=== PATIENT | male | born 1960 | race American Indian/Alaskan Native ===

== ENCOUNTER 2018-09-19 17:26 | Inpatient (IN) | payer MEDICAID, MEDICARE ==
[~2018-09-19 17:26] MED LIST: SOLU-Medrol IV SCH
[2018-09-19] MEDS ORDERED: TYLENOL PO ONE (18:46)
[2018-09-19 19:50] LABS: Basophils # (Auto) 0.1 K/mm3 (0.0-0.1); Basophils % (Auto) 0.9 % (0.0-1.8); Hematocrit 28.9 % (35.5-45.6); Hemoglobin 9.7 gm/dl (11.8-15.2); Lymphocytes # (Auto) 3.1 K/mm3 (1.2-5.4); Lymphocytes % (Auto) 29.9 % (13.4-35.0); Mean Corpuscular HGB Conc 34 % (32-34); Mean Corpuscular Volume 88 fl (84-94); Monocytes # (Auto) 1.6 K/mm3 (0.0-0.8); Platelet Count 108 K/mm3 (140-440); Red Cell Distribution Width 14.9 % (13.2-15.2)
[2018-09-19 20:13] LABS: BUN/Creatinine Ratio 27; Blood Urea Nitrogen 19 mg/dL (9-20); Calcium 8.6 mg/dL (8.4-10.2); Hemolysis Index 6
--- NOTE | 2018-09-19 20:25 | XRay Report ---
FINAL REPORT PROCEDURE: XR CHEST 1V AP TECHNIQUE: Chest radiograph anteroposterior view. CPT 30243 HISTORY: SOB COMPARISON: No prior studies are available for comparison. FINDINGS: Heart: Normal. Mediastinum/Vessels: Normal. Lungs/Pleural space: Lungs are hyperexpanded. Mild fibrotic densities. No focal infiltrate. Bony thorax: No acute osseous abnormality. Life support devices: None. IMPRESSION: Hyperexpansion suggesting COPD. No focal infiltrate..
[2018-09-19] MEDS ORDERED: LEVAQUIN 500MG/100ML 500 MG/100 ML BAG IV ONE (20:45)
[2018-09-19] MEDS ORDERED: NACL 0.9% 1000 ML 1,000 ML IV ONE (20:45)
[2018-09-19] MEDS ORDERED: SOLU-Medrol IV ONE (20:45)
[2018-09-19] MEDS ORDERED: PROVENTIL IH ONE (20:45)
[2018-09-19] MEDS ORDERED: NACL 0.9% 500 ML 500 ML IV ONE (20:45)
--- NOTE | 2018-09-19 20:47 | Emergency Department Report ---
ED General Adult HPI - General Chief complaint: Dyspnea/Respdistress Stated complaint: SHORTNESS OF BREATH Time Seen by Provider: 09/19/18 19:50 Source: patient, family, RN notes reviewed Limitations: Physical Limitation, Other (patient is a poor historian) - History of Present Illness Initial comments: This is a pleasant 58-year-old gentleman, history of COPD, on chronic home oxygen, and known to this provider previously, also reportedly has a history of HIV, reports primary care doctor at [facility]. Patient and family do not know what his CD4 count or viral load is. Patient is brought to the hospital by his sister for evaluation of weakness, cough, fever, history of chest pain, malaise, fatigue, decreased ability to complete activities of daily living. Apparently, the symptoms are constant, worse with physical exertion, decreased with rest, and patient and family are curious about hospice care. Patient reports getting his flu vaccination, and apparently is noncompliant with his antiviral therapy. goals of care not currently established at this point in time. In terms of advanced directives, patient is currently a full code -: Gradual Severity scale (0 -10): 0 Consistency: constant Improves with: other Worsens with: other Associated Symptoms: cough, fever/chills, loss of appetite, malaise, shortness o f breath, weakness. denies: confusion, chest pain, diaphoresis, headaches, nausea/vomiting, rash, seizure, syncope - Related Data Home Medications Medication Instructions Recorded Confirmed Last Taken Acetaminophen [Tylenol] 650 mg PO Q6HR PRN 09/19/18 09/19/18 Unknown Albuterol Sulfate [Ventolin HFA] 2 puff IH Q6H PRN 09/19/18 09/19/18 Unknown Budesonide/Formoterol Fumarate 2 puff IH BID 09/19/18 09/19/18 Unknown [Symbicort 160-4.5 Mcg Inhaler] Fluticasone [Flonase] 1 spray NS QDAY 09/19/18 09/19/18 Unknown Melatonin [Melatin] 3 mg PO HS PRN 09/19/18 09/19/18 Unknown Multivitamin Tab [Multiple Vitamin 1 each PO QDAY 09/19/18 09/19/18 Unknown TAB (Theragran)] Sodium Chloride [Saline Nasal 1 spray NS BID 09/19/18 09/19/18 Unknown [place]] amLODIPine [Norvasc] 5 mg PO DAILY 09/19/18 09/19/18 Unknown Allergies Allergy/AdvReac Type Severity Reaction Status Date / Time No Known Allergies Allergy Unverified 09/19/18 18:36 ED Review of Systems ROS: Stated complaint: SHORTNESS OF BREATH Other details as noted in HPI Constitutional: fever, malaise, weakness Eyes: denies: vision change Respiratory: cough, shortness of breath, wheezing Cardiovascular: chest pain (Sr. reports history of chest pain, patient denies) Gastrointestinal: diarrhea Genitourinary: denies: dysuria Musculoskeletal: arthralgia, myalgia Skin: denies: lesions Neurological: weakness Psychiatric: anxiety ED Past Medical Hx - Past Medical History Previous Medical History?: Yes Hx COPD: Yes Hx HIV: Yes Additional medical history: pneumonia - Surgical History Past Surgical History?: No - Social History Smoking Status: Former Smoker Substance Use Type: None - Medications Home Medications: Home Medications Medication Instructions Recorded Confirmed Last Taken Type Acetaminophen [Tylenol] 650 mg PO Q6HR PRN 09/19/18 09/19/18 Unknown History Albuterol Sulfate [Ventolin HFA] 2 puff IH Q6H PRN 09/19/18 09/19/18 Unknown History Budesonide/Formoterol Fumarate 2 puff IH BID 09/19/18 09/19/18 Unknown History [Symbicort 160-4.5 Mcg Inhaler] Fluticasone [Flonase] 1 spray NS QDAY 09/19/18 09/19/18 Unknown History Melatonin [Melatin] 3 mg PO HS PRN 09/19/18 09/19/18 Unknown History Multivitamin Tab [Multiple Vitamin 1 each PO QDAY 09/19/18 09/19/18 Unknown History TAB (Theragran)] Sodium Chloride [Saline Nasal 1 spray NS BID 09/19/18 09/19/18 Unknown History [place]] amLODIPine [Norvasc] 5 mg PO DAILY 09/19/18 09/19/18 Unknown History ED Physical Exam - General Limitations: No Limitations General appearance: alert, cachectic - Head Head exam: Present: atraumatic, normocephalic - Eye Eye exam: Present: normal appearance, EOMI. Absent: nystagmus - ENT ENT exam: Present: normal exam, mucous membranes dry, normal external ear exam - Neck Neck exam: Present: normal inspection, full ROM. Absent: tenderness, meningismus - Respiratory Respiratory exam: Present: respiratory distress, decreased breath sounds - Cardiovascular Cardiovascular Exam: Present: normal rhythm, tachycardia, normal heart sounds. Absent: systolic murmur, diastolic murmur, rubs, gallop - GI/Abdominal GI/Abdominal exam: Present: soft. Absent: distended, tenderness, guarding, rebound, rigid, pulsatile mass - Rectal Rectal exam: Present: deferred - Extremities Exam Extremities exam: Present: normal inspection, full ROM, other (2+ pulses noted in the bilateral upper, lower extremities. Compartments soft. No long bony tenderness. The pelvis is stable.). Absent: pedal edema, joint swelling, calf tenderness - Back Exam Back exam: Present: normal inspection, full ROM. Absent: tenderness, CVA tenderness (R), paraspinal tenderness, vertebral tenderness - Neurological Exam Neurological exam: Present: alert, oriented X3, other (Extraocular movements intact. Tongue midline. No facial droop. Facial sensation intact to light touch in the V1, V2, V3 distribution bilaterally. 5 and 5 strength in 4 extremities.. Sensation is intact to light touch in 4 extremities.). Absent: motor sensory deficit - Psychiatric Psychiatric exam: Present: anxious - Skin Skin exam: Present: warm, dry, intact, normal color. Absent: rash ED Course Vital Signs 09/19/18 09/19/18 09/19/18 18:26 18:30 18:33 Temperature 102.8 F H Pulse Rate 104 H 101 H 104 H Respiratory 30 H 30 H Rate Blood Pressure 139/76 O2 Sat by Pulse 99 99 Oximetry 09/19/18 09/19/18 09/19/18 18:46 19:00 19:16 Temperature Pulse Rate 102 H 104 H 101 H Respiratory 39 H 31 H 38 H Rate Blood Pressure 139/76 141/87 137/73 O2 Sat by Pulse 100 98 98 Oximetry 09/19/18 09/19/18 09/19/18 19:30 19:46 20:00 Temperature Pulse Rate 98 H 98 H 88 Respiratory 36 H 40 H 26 H Rate Blood Pressure 126/64 121/67 121/67 O2 Sat by Pulse 97 98 100 Oximetry 09/19/18 09/19/18 20:01 20:16 Temperature Pulse Rate 84 Respiratory 26 H 22 Rate Blood Pressure 121/67 O2 Sat by Pulse 96 99 Oximetry - Reevaluation(s) Reevaluation #1: 09/19/18 20:58 Differential diagnosis, including but not limited to: Viremia, bacteremia, and sulindac, pneumonia, urinary tract infection, end-stage COPD, end-stage HIV Assessment and plan: 58-year-old gentleman with articulated complaint of weakness, decreased ability to perform activities of daily living, who appears cachectic, wasted, with dry mucous membranes. Is febrile and tachycardic, therefore meets systemic inflammatory response syndrome criteria. Saturating well, 96% on 3 L supplemental oxygen, with no focal pulmonary findin gs. I suspect the patient is experiencing the natural progression and history of end-stage COPD, and end-stage HIV. Extensive discussion had with patient and family. Patient currently full code, although interested in hospice. We have discussed goals of care and advanced directives, and patient and family are deliberating amongst themselves currently. The patient is currently amenable to hospitalization for supportive care, IV fluids, antibiotics, and has requested to speak to a counseling case manager or hospice publications sales representative to discuss her options further. We will admit to the medical team for further evaluation, the hospital physician is paged to arrange admission. Reevaluation #2: 09/19/18 21:19 Hospital physician, Dr. Knowles, accepts to the medical service ED Medical Decision Making - Lab Data Result diagrams: 09/19/18 19:16 09/19/18 19:16 Vital Signs 09/19/18 09/19/18 09/19/18 18:26 18:30 18:33 Temperature 102.8 F H Pulse Rate 104 H 101 H 104 H Respiratory 30 H 30 H Rate Blood Pressure 139/76 O2 Sat by Pulse 99 99 Oximetry 09/19/18 09/19/18 09/19/18 18:46 19:00 19:16 Temperature Pulse Rate 102 H 104 H 101 H Respiratory 39 H 31 H 38 H Rate Blood Pressure 139/76 141/87 137/73 O2 Sat by Pulse 100 98 98 Oximetry 09/19/18 09/19/18 09/19/18 19:30 19:46 20:00 Temperature Pulse Rate 98 H 98 H 88 Respiratory 36 H 40 H 26 H Rate Blood Pressure 126/64 121/67 121/67 O2 Sat by Pulse 97 98 100 Oximetry 09/19/18 09/19/18 20:01 20:16 Temperature Pulse Rate 84 Respiratory 26 H 22 Rate Blood Pressure 121/67 O2 Sat by Pulse 96 99 Oximetry Lab Results 09/19/18 09/19/18 Range/Units 19:16 19:16 WBC 10.4 (4.5-11.0) K/mm3 RBC 3.30 L (3.65-5.03) M/mm3 Hgb 9.7 L (11.8-15.2) gm/dl Hct 28.9 L (35.5-45.6) % MCV 88 (84-94) fl MCH 29 (28-32) pg MCHC 34 (32-34) % RDW 14.9 (13.2-15.2) % Plt Count 108 L (140-440) K/mm3 Lymph % (Auto) 29.9 (13.4-35.0) % [place] % (Auto) 15.0 H (0.0-7.3) % Eos % (Auto) 0.0 (0.0-4.3) % Baso % (Auto) 0.9 (0.0-1.8) % Lymph # 3.1 (1.2-5.4) K/mm3 [place] # 1.6 H (0.0-0.8) K/mm3 Eos # 0.0 (0.0-0.4) K/mm3 Baso # 0.1 (0.0-0.1) K/mm3 Seg Neutrophils % 54.2 (40.0-70.0) % Seg Neutrophils # 5.6 (1.8-7.7) K/mm3 Sodium 134 L (137-145) mmol/L Potassium 4.2 (3.6-5.0) mmol/L Chloride 95.8 L (98-107) mmol/L Carbon Dioxide 27 (22-30) mmol/L Anion Gap 15 mmol/L BUN 19 (9-20) mg/dL Creatinine 0.7 L (0.8-1.5) mg/dL Estimated GFR > 60 ml/min BUN/Creatinine Ratio 27 % Glucose 99 (75-100) mg/dL Calcium 8.6 (8.4-10.2) mg/dL - EKG Data -: EKG Interpreted by Sd - EKG Data When compared to previous EKG there are: previous EKG unavailable 09/19/18 21:00 Sinus tachycardia, 101 bpm, normal axis, NM interval within normal limits, left ventricular hypertrophy, atrial enlargement, motion artifact, not consistent with ST elevation myocardial infarction. - Radiology Data Radiology results: report reviewed, image reviewed X-ray of the chest shows COPD, no acute infiltrate Critical care attestation.: If time is entered above; I have spent that time in minutes in the direct care of this critically ill patient, excluding procedure time. ED Disposition Clinical Impression: Systemic inflammatory response syndrome (SIRS), End stage COPD Disposition: OP ADMIT IP TO THIS HOSP Is pt being admited?: Yes Condition: Poor Instructions: Chronic Obstructive Pulmonary Disease (ED) Referrals: PRIMARY CARE, [Primary Care Provider] - 3-5 Days
[2018-09-19] MEDS: ATROVENT IH ONE (21:41)
[2018-09-19 23:02] LABS: Bilirubin,Urine NEG (Negative); Blood,Urine NEG (Negative); Color,Urine Yellow (Yellow); Hyaline Casts,Urine 1 /LPF; Mucus,Urine FEW /HPF; Urobilinogen,Urine < 2.0 mg/dL (<2.0)
[2018-09-19] MEDS ORDERED: ROBITUSSIN PO PRN (23:13)
[2018-09-19] MEDS ORDERED: TYLENOL PO PRN (23:14)
[2018-09-19] MEDS ORDERED: ZOFRAN IV PRN (23:15)
[2018-09-19] MEDS ORDERED: NON-FORMULARY (Melatonin [Melatin] 3 MG) PO PRN (23:20)
[2018-09-20] MEDS ORDERED: NACL 0.9% 1000 ML 1,000 ML IV SCH (04:00)
--- NOTE | 2018-09-20 04:29 | History and Physical Report ---
CHIEF COMPLAINT: Shortness of breath. Other complaint includes fever. HISTORY OF PRESENT ILLNESS: The patient is a 58-year-old male with past medical history of chronic obstructive pulmonary disease, home O2 dependent, HIV infection, presenting with shortness of breath and fever going on for few days. There is no history of chest pain. There is also history of weakness and cough, but no history of nausea and vomiting. The patient noted by his sister to be feeling so tired and unable to complete his daily activities and the patient was brought to the Emergency Room for further evaluation. PAST MEDICAL HISTORY: Pertinent for COPD, home O2 dependent, HIV infection, pneumonia. PAST SURGICAL HISTORY: Unremarkable. FAMILY HISTORY: Noncontributory. SOCIAL HISTORY: The patient is a former cigarette smoker. Does not smoke anymore, does not drink alcohol and does not use illicit drugs. MEDICATIONS: The patient is on Tylenol 650 mg by mouth every 6 hours as needed for fever and headache, albuterol inhaler two puffs every 6 hours as needed for shortness of breath, Symbicort 160/4.5 mcg inhaler 2 puffs by inhalation twice daily, Flonase 1 spray nasally daily, melatonin 3 mg by mouth at bedtime for insomnia. Multiple vitamin tablet Theragran one by mouth daily, sodium chloride nasal spray twice daily, amlodipine 5 mg by mouth daily. ALLERGIES: There are no known drug allergies. REVIEW OF SYSTEMS: CONSTITUTIONAL: There is fever, but no chills, no diaphoresis. HEENT: There is no headache or sore throat. CARDIOVASCULAR SYSTEM: There is pleuritic chest pain, but no orthopnea. RESPIRATORY SYSTEM: Shortness of breath is present. Cough is present. GASTROINTESTINAL SYSTEM: There is no nausea, no vomiting, no abdominal pain, diarrhea or constipation. NEUROLOGICAL SYSTEM: There is no numbness, no dizziness, but there is generalized weakness and there is no change in mental status. MUSCULOSKELETAL SYSTEM: There is no joint pain or swelling. DERMATOLOGICAL SYSTEM: There is no skin rash or itching. GENITOURINARY SYSTEM: There is no dysuria, hematuria or flank pain. Rest of system review is normal. PHYSICAL EXAMINATION: GENERAL: At the time of exam, the patient was found to be alert, oriented x 3, and not in acute distress. VITAL SIGNS: Shows temperature of 102.8 degrees Fahrenheit, pulse of 101, respirations 30, blood pressure 139/76, O2 sat of 99% on oxygen 2 liters. HEENT: Showed pupils to be equal, round, reactive to light and accommodating. Extraocular muscles are intact. NECK: Supple with no JVD or carotid bruit. CARDIOVASCULAR: Showed normal first and second heart sounds with no gallops or murmurs. RESPIRATORY SYSTEM: Showed good air entry on both sides of the lungs with no abnormal breath sounds. GASTROINTESTINAL SYSTEM: Show abdomen to be full, soft, nontender with no organomegaly or rigidity. NEUROLOGIC: Showed no focal deficits. MUSCULOSKELETAL SYSTEM: Show no joint swelling or tenderness. DERMATOLOGICAL SYSTEM: Show no skin rash. GENITOURINARY SYSTEM: Show no costovertebral angle tenderness. PERTINENT LABORATORY AND IMAGING STUDIES: The patient had a chest x-ray done that shows hyperexpansion of the lungs suggestive of COPD with no focal infiltrate. Lab results, the patient has CBC done with normal white count, low hemoglobin of 9.7 and low hematocrit of 28.9 with normal MCV. The patient's CBC differential showed elevated monocyte count of 15% with chemistry showing low sodium of 134 with normal potassium and low chloride of 95.8 and unremarkable renal function test. The patient's lactate dehydrogenase level is high with a value of 240. The patient's troponin level came back unremarkable. Urinalysis was unremarkable. Serology: Influenza A and influenza B tests were negative. DIAGNOSES: 1. Chronic obstructive pulmonary disease exacerbation. 2. Sepsis. PLAN OF ACTION: 1. The patient will be admitted as inpatient to telemetry. 2. The patient will be IV Levaquin 750 mg daily and will also be on IV Zosyn 3.375 grams q. 8 hours for the treatment of sepsis. Also, the patient will be on IV normal saline running at 125 mL an hour. 3. The patient will be on IV Solu-Medrol 60 mg every 8 hours for treatment of COPD exacerbation and will be on DuoNeb nebulizer q.i.d. 4. The patient will be on p.r.n. medications like IV Zofran 4 mg every 8 hours for nausea and vomiting and Tylenol 650 mg by mouth every 4 hours for fever and headache. The patient will also be on Robitussin 200 mg by mouth every 4 hours for cough and DVT prophylaxis will be through heparin 5000 units subcutaneous q. 12 hours. 5. The patient will be on oxygen via nasal cannula at 2 liters per minute and the patient's diet will be regular diet. JOB# [id number] OCN/NTS
[2018-09-20] MEDS: SOLU-Medrol IV SCH ×3 (04:35→21:14)
[2018-09-20] MEDS: ZOSYN/NS 3.375GM/50ML 3.375 GM/50 ML BAG IV SCH ×2 (06:45→14:31)
[2018-09-20] MEDS: DUONEB *Not for PRN Use IH SCH ×4 (08:03→21:03)
[2018-09-20] MEDS: NORVASC PO SCH (11:07)
[2018-09-20] MEDS: HEPARIN SUB-Q SCH ×2 (11:08→21:16)
[2018-09-20] MEDS: LEVAQUIN 750MG/150ML 750 MG/150 ML BAG IV SCH (11:08)
[2018-09-20] MEDS: THERAGRAN Tab PO SCH (11:08)
--- NOTE | 2018-09-20 18:11 | Progress Note ---
Assessment and Plan Assessment and plan: End-stage COPD with exacerbation Acute on chronic hypoxemic/hypercapnic respiratory failure HIV - Patient was treated for COPD exacerbation according to COPD protocol - Appropriate home medications were continued Disposition - Tomorrow to home with hospice care History Interval history: Patient was seen and evaluated this morning, patient said he is feeling better. Hospitalist Physical - Physical exam Narrative exam: Not in cardiopulmonary distress. The patient cachectic. Vital signs as documented. Head exam is unremarkable. No scleral icterus . Neck is without jugular venous distension, thyromegaly, or carotid bruits. Lungs scattered wheezing. Cardiac exam reveals regular rate and Rhythm. Abdominal exam reveals normal bowel sounds. Extremities are nonedematous and both femoral and pedal pulses are normal. BRAND DEVELOPMENT MANAGER: Alert and oriented 3. No focal weakness. - Constitutional Vitals: Temp Pulse Resp BP Pulse Ox 97.7 F 81 20 127/66 98 09/20/18 12:12 09/20/18 17:08 09/20/18 17:08 09/20/18 12:12 09/20/18 12:12 Results - Labs CBC & Chem 7: 09/21/18 04:55 09/21/18 04:55 Labs: Laboratory Last Values WBC 10.4 K/mm3 (4.5-11.0) 09/19/18 19:16 RBC 3.30 M/mm3 (3.65-5.03) L 09/19/18 19:16 Hgb 9.7 gm/dl (11.8-15.2) L 09/19/18 19:16 Hct 28.9 % (35.5-45.6) L 09/19/18 19:16 MCV 88 fl (84-94) 09/19/18 19:16 MCH 29 pg (28-32) 09/19/18 19:16 MCHC 34 % (32-34) 09/19/18 19:16 RDW 14.9 % (13.2-15.2) 09/19/18 19:16 Plt Count 108 K/mm3 (140-440) L 09/19/18 19:16 Lymph % (Auto) 29.9 % (13.4-35.0) 09/19/18 19:16 [place] % (Auto) 15.0 % (0.0-7.3) H 09/19/18 19:16 Eos % (Auto) 0.0 % (0.0-4.3) 09/19/18 19:16 Baso % (Auto) 0.9 % (0.0-1.8) 09/19/18 19:16 Lymph # 3.1 K/mm3 (1.2-5.4) 09/19/18 19:16 [place] # 1.6 K/mm3 (0.0-0.8) H 09/19/18 19:16 Eos # 0.0 K/mm3 (0.0-0.4) 09/19/18 19:16 Baso # 0.1 K/mm3 (0.0-0.1) 09/19/18 19:16 Seg Neutrophils % 54.2 % (40.0-70.0) 09/19/18 19:16 Seg Neutrophils # 5.6 K/mm3 (1.8-7.7) 09/19/18 19:16 Sodium 134 mmol/L (137-145) L 09/19/18 19:16 Potassium 4.2 mmol/L (3.6-5.0) 09/19/18 19:16 Chloride 95.8 mmol/L (98-107) L 09/19/18 19:16 Carbon Dioxide 27 mmol/L (22-30) 09/19/18 19:16 Anion Gap 15 mmol/L 09/19/18 19:16 BUN 19 mg/dL (9-20) 09/19/18 19:16 Creatinine 0.7 mg/dL (0.8-1.5) L 09/19/18 19:16 Estimated GFR > 60 ml/min 09/19/18 19:16 BUN/Creatinine Ratio 27 % 09/19/18 19:16 Glucose 99 mg/dL (75-100) 09/19/18 19:16 Lactic Acid 0.70 mmol/L (0.7-2.0) 09/19/18 21:12 Calcium 8.6 mg/dL (8.4-10.2) 09/19/18 19:16 Lactate Dehydrogenase 240 units/L (91-180) H 09/19/18 21:12 Total Creatine Kinase 82 units/L (55-170) 09/19/18 21:12 Troponin T 0.011 ng/mL (0.00-0.029) 09/19/18 21:12 Urine Color Yellow (Yellow) 09/19/18 22:25 Urine Turbidity Clear (Clear) 09/19/18 22:25 Urine pH 5.0 (5.0-7.0) 09/19/18 22:25 Ur Specific [place] 1.017 (1.003-1.030) 09/19/18 22:25 Urine Protein 30 mg/dl mg/dL (Negative) 09/19/18 22:25 Urine Glucose (UA) Neg mg/dL (Negative) 09/19/18 22:25 Urine Ketones Neg mg/dL (Negative) 09/19/18 22:25 Urine Blood Neg (Negative) 09/19/18 22:25 Urine Nitrite Neg (Negative) 09/19/18 22:25 Urine Bilirubin Neg (Negative) 09/19/18 22:25 Urine Urobilinogen < 2.0 mg/dL (<2.0) 09/19/18 22:25 Ur Leukocyte Esterase Neg (Negative) 09/19/18 22:25 Urine WBC (Auto) 2.0 /HPF (0.0-6.0) 09/19/18 22:25 Urine RBC (Auto) 3.0 /HPF (0.0-6.0) 09/19/18 22:25 U Epithel Cells (Auto) < 1.0 /HPF (0-13.0) 09/19/18 22:25 Hyaline Casts 1 /LPF 09/19/18 22:25 Urine Mucus Few /HPF 09/19/18 22:25 Influenza A (Rapid) Negative (Negative) 09/19/18 22:25 Influenza B (Rapid) Negative (Negative) 09/19/18 22:25 Nutrition/Malnutrition Assess - Dietary Evaluation Nutrition/Malnutrition Findings: Nutrition Notes Start: 09/20/18 1 1:53 Freq: Status: Active Protocol: Document 09/20/18 11:53 LM (Rec: 09/20/18 12:31 LM [id number]) Co-Sign 09/20/18 11:53 LP Nutrition Notes 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 Pt actually weighs 44.9 lb (98.8 lb). Time frame for weight change unknown. Subjective/Other Information RN consult for MST and low BMI . 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 Pt ate all of his breakfast this morning. Pt said he eats a lot but never gains weight. Pt denied any weight changes. Pt stated he has always been small. Offered pt Ensure but pt stated he does not like Ensure. Pt awaiting for home hospice. Burn Absent Trauma Absent Current % PO Good (75-100%) Minimum of two criteria Yes Body Fat Depletion Moderate depletion (severe) Muscle Mass Moderate Depletion (severe) #1 Nutrition Diagnosis Malnutrition Etiology HIV, COPD As Evidenced by Signs and Symptoms muscle wasting, 30 lb weight loss, BMI 13.4 Is patient on ventilator? No Is Patient Ambulatory and/or Out of Bed Yes REE-(Donna-St. Jeor-ambulatory/OOB) [ 1686.100 NUTR.[id number]] Kcal/Kg value to use for calculation 50 Approximate Energy Requirements Using 2245 kcal/Kg Calculation Used for Recommendations Kcal/kg Additional Notes Protein: 54-67 g (1.2-1.5 g/kg ) Fluids: 1 mL/kcal Nutrition Intervention Change Diet Order: Continue regular diet Goal #1 Meet at least 75% of enegy and protein needs Anticipated Discharge Needs: Regular diet Follow-Up By: 09/23/18 Additional Comments F/U for intakes
[2018-09-20] MEDS: ZOSYN/NS 4.5GM/100ML 4.5 GM/100 ML VIAL IV SCH (21:13)
[2018-09-21] MEDS: DEEP SEA NS SCH ×2 (04:22→10:22)
[2018-09-21] MEDS: SOLU-Medrol IV SCH ×2 (04:22→12:44)
[2018-09-21 05:31] LABS: Basophils % (Auto) 0.1 % (0.0-1.8); Hematocrit 28.5 % (35.5-45.6); Hemoglobin 9.3 gm/dl (11.8-15.2); Lymphocytes % (Auto) 11.6 % (13.4-35.0); Mean Corpuscular HGB Conc 33 % (32-34); Mean Corpuscular Volume 90 fl (84-94); Monocytes # (Auto) 0.7 K/mm3 (0.0-0.8); Monocytes % (Auto) 7.9 % (0.0-7.3); Red Blood Count 3.18 M/mm3 (3.65-5.03); Red Cell Distribution Width 15.1 % (13.2-15.2)
[2018-09-21 05:33] LABS: Platelet Count 95 K/mm3 (140-440)
[2018-09-21 05:49] LABS: BUN/Creatinine Ratio 34; Blood Urea Nitrogen 17 mg/dL (9-20); Calcium 8.4 mg/dL (8.4-10.2); Hemolysis Index 1
[2018-09-21] MEDS: ZOSYN/NS 4.5GM/100ML 4.5 GM/100 ML VIAL IV SCH (06:32)
[2018-09-21] MEDS: DUONEB *Not for PRN Use IH SCH (08:15)
[2018-09-21] MEDS: THERAGRAN Tab PO SCH (10:16)
[2018-09-21] MEDS: LEVAQUIN 750MG/150ML 750 MG/150 ML BAG IV SCH (10:16)
[2018-09-21] MEDS: NORVASC PO SCH (10:21)
[2018-09-21] MEDS: HEPARIN SUB-Q SCH ×2 (10:22→10:26)
--- NOTE | 2018-09-21 10:28 | Discharge Summary ---
Providers - Providers Date of Admission: 09/20/18 15:44 Attending physician: NGA DOS SANTOS MD 09/19/18 20:46 Consult to Case Management [CONS] Stat Services Needed at Discharge: Other Notified:: awaiting call back Additional Physician Instructions: needs hospice eval Primary care physician: INSTRUMENT ASSEMBLER Hospitalization Reason for admission: COPD exacerbation Condition: Poor Pertinent studies: Chest x-ray IMPRESSION: Hyperexpansion suggesting COPD. No focal infiltrate.. Hospital course: 58 year old -[place] male with past medical history significant for HIV, end-stage COPD on home oxygen was admitted for the management of COPD exacerbation. Patient was treated according to COPD protocol. Patient showed some improvement and he wants to go home with home hospice. Patient was at baseline has a temperature discharge. He said he has all his medications at home. He was discharged with steroid and antibiotics. Disposition: DC-50 TO HOSPICE (HOME) Time spent for discharge: 32 minutes - Discharge Diagnoses (1) End stage COPD Status: Acute (2) Systemic inflammatory response syndrome (SIRS) Status: Acute Core Measure Documentation - Palliative Care Palliative Care/ Comfort Measures: Hospice Care - Core Measures Any of the following diagnoses?: none Exam - Physical Exam Narrative exam: Not in cardiopulmonary distress. The patient cachectic. Vital signs as documented. Head exam is unremarkable. No scleral icterus . Neck is without jugular venous distension, thyromegaly, or carotid bruits. Lungs scattered wheezing. Cardiac exam reveals regular rate and Rhythm. Abdominal exam reveals normal bowel sounds. Extremities are nonedematous and both femoral and pedal pulses are normal. PARCEL POST CLERK: Alert and oriented 3. No focal weakness. - Constitutional Vitals: Temp Pulse Resp BP Pulse Ox 98.2 F 68 18 122/66 98 09/21/18 05:35 09/21/18 08:24 09/21/18 08:24 09/21/18 10:21 09/21/18 08:17 Plan Activity: no restrictions Weight Bearing Status: Full Weight Bearing Diet: regular Special Instructions: home oxygen via Additional Instructions: F/u at [facility] if no established PCP as needed. Follow up with: PRIMARY CARE, [Primary Care Provider] - 3-5 Days Prescriptions: levoFLOXacin [Levaquin TAB] 500 mg PO QDAY #7 tablet Prednisone [predniSONE 10 mg (6-Day Pack, 21 Tabs)] 10 mg PO .TAPER #1 tab.ds.pk
[2018-09-21 12:54] VITALS: BP 129/67
[2018-09-21] MEDS ORDERED: DUONEB *Not for PRN Use IH SCH (14:00)
--- NOTE | 2018-09-21 14:43 | Query- Dyspnea ---
Bi Napier Silverio Date:___09/21/18 Level Vial Curvature Gauger/CDS:____[facility] Phone#:____[phone] Exercise your independent professional judgment when responding to query. Questions asked do not imply a particular answer is desired or expected. We greatly appreciate your clarification on this issue. Clinical Documentation States: This is a pleasant 58-year-old gentleman, history of COPD, on chronic home oxygen, and known to this provider previously, also reportedly has a history of HIV, reports primary care doctor at [place]. Discharge Diagnoses (1) End stage COPD (2) Systemic inflammatory response syndrome (SIRS) Clinical Findings Show: 09/19/18 RR 40 O2 Flow 4L O2 Sat 78% Please clarify if the patient had any of the following conditions based on the above clinical findings: [ ] Respiratory Failure [ ] Acute [ x] Acute on Chronic [ ] Chronic [ ] Respiratory failure due to trauma [ ] Acute Respiratory Distress Syndrome [ ] Other: [ ] Unable to determine [ ] Comment/Explanation: Present on Admission: [x ] Yes (Y) [ ] Clinically undeterminable (W) [ ] No (N) Please also document response in your Progress Notes and/or Discharge Summary and indicate if the condition was present on admission. SIENNA
== END 2018-09-21 12:45 | disposition hospice, home (50) | DRG 871 ==
LOC: ED 17:26 → 3A 21:19 → OBSVTOIN 09-20 15:44
PROVIDERS: ADMIT Internal Medicine; ATTEND Internal Medicine
DX: A41.9 Sepsis, unspecified organism (principal); J96.20 Acute and chronic respiratory failure, unspecified whether with hypoxia or hypercapnia; J44.1 Chronic obstructive pulmonary disease with (acute) exacerbation; Z99.81 Dependence on supplemental oxygen; Z79.899 Other long term (current) drug therapy; Z87.01 Personal history of pneumonia (recurrent)
CPT/HCPCS: 36415; 71045; 80048; 81001; 82140; 82550; 83615; 84484; 85025; 87040; 87086; 87400; 93005; 93010; 94640; 94760; 96365; 96366; 96372; 96375; G0378; J1644; J1956; J2543; J2920; J2930; J7030